=== PATIENT | female | born 1940 | race Caucasian/White ===

== ENCOUNTER 2017-02-10 05:32 | Day surgery (SDC) | payer OTHER, MEDICARE ==
[~2017-02-10] VITALS: Ht 165.1 cm; Wt 104.5 kg
[~2017-02-10 05:32] MED LIST: CATAPRES0.1 MG PO; COREG25 M1 PO; CYMBALTA30 MG PO; GLUCOPHAGE1000 MG PO; LASIX40 MG PO; LO-DOSE ASPIRIN81 M1 PO; NEURONTIN600 MG PO; NORVASC10 MG PO; PERCOCET 10/1 TABLET PO; PLAVIX75 MG PO; ZESTRIL20 MG PO; ZOCOR20 MG PO
[2017-02-10 06:09] VITALS: BP 123/60
[2017-02-10 06:11] LABS: POINT-OF-CARE METER ID UU14174212
[2017-02-10 10:07] LABS: POINT-OF-CARE METER ID UU13113675; POINT-OF-CARE USER ID 515036437
[2017-02-10 13:07] VITALS: BP 150/67
[2017-02-10 16:03] VITALS: BP 151/66
[2017-02-10 20:33] VITALS: BP 138/62
[2017-02-11 00:29] VITALS: BP 124/63
[2017-02-11 00:32] VITALS: BP 121/55
[2017-02-11 04:27] VITALS: BP 115/54
[2017-02-11 08:10] VITALS: BP 190/81
[2017-02-11 09:26] VITALS: BP 103/74
[2017-02-11 11:10] VITALS: BP 141/69
[2017-02-11] MEDS ORDERED: HYDROMORPHONE HC4 MG PO (11:52)
== END 2017-02-11 13:43 | disposition home or self-care (01) ==
LOC: SDC 05:32 → 2SOUTH 09:25 → ENRESERV 10:09 → SDC 11:31 → ENRESERV 11:47 → SDC 12:26 → 3EAST 13:03
PROVIDERS: Neurological Surgery
DX: M54.16 Radiculopathy, lumbar region (principal); M43.16 Spondylolisthesis, lumbar region; I10 Essential (primary) hypertension; Z95.5 Presence of coronary angioplasty implant and graft; E78.00 Pure hypercholesterolemia, unspecified; G47.30 Sleep apnea, unspecified; E11.40 Type 2 diabetes mellitus with diabetic neuropathy, unspecified; Z79.02 Long term (current) use of antithrombotics/antiplatelets; Z79.82 Long term (current) use of aspirin; Z87.891 Personal history of nicotine dependence
CPT/HCPCS: 72020; 76000; 82948; G0378; G8978 GP CI; G8979 GP CH; G8980 GP CI; J0330; J0690; J1100; J1170; J2250; J2405; J2765; J3010; J3370; J3480